=== PATIENT | female | born 1955 | race Two or more races ===

== ENCOUNTER → 2017-08-25 | Outpatient (CLI) | payer OTHER ==
[~2017-08-25] MED LIST: ATORVASTATIN CA10 MG PO; CENTRUM MULTIG80 MCG PO; COZAAR100 MG PO; FORTAMET1000 MG PO; HUMALOG MI100 UNIT/2; MAGNESIUM250 M1 PO; NEURONTIN300 MG PO; PROTONIX40 MG PO; SYNTHROID100 MCG PO
== END | disposition home or self-care (01) ==
LOC: RAD 10:50
DX: Z76.89 Persons encountering health services in other specified circumstances (principal)

== ENCOUNTER → 2017-08-25 | Outpatient (CLI) | payer OTHER | END | disposition home or self-care (01) | LOC: LAB 10:08 | DX: D64.89 Other specified anemias (principal); D68.8 Other specified coagulation defects; N39.0 Urinary tract infection, site not specified; E88.89 Other specified metabolic disorders; A49.02 Methicillin resistant Staphylococcus aureus infection, unspecified site ==

== ENCOUNTER → 2017-08-25 | Outpatient (CLI) | payer OTHER | END | disposition home or self-care (01) | LOC: EKG 11:05 | DX: I49.8 Other specified cardiac arrhythmias (principal) ==

== ENCOUNTER 2017-08-31 12:20 | Inpatient (IN) | payer OTHER ==
[~2017-08-31] VITALS: Ht 154.9 cm; Wt 68.0 kg
[2017-08-31] MEDS ORDERED: SIDEROL TABLET1 EACH PO (12:49)
[2017-08-31] MEDS ORDERED: FAMOTIDINE40 MG PO (12:49)
[2017-09-11] MEDS ORDERED: CIPRO I.V.400 MG/201 IV (07:24)
[2017-09-11] MEDS ORDERED: ATORVASTATIN CA10 MG PO (07:24)
[2017-09-11] MEDS ORDERED: METFORMIN HCL500 MG PO (07:24)
[2017-09-11] MEDS ORDERED: VANCOMYCIN HCL1 GM IV (07:24)
== END 2017-09-11 16:14 | disposition home health service (06) | DRG 496 ==
LOC: O/R 09-04 05:44 → SURH 09-04 05:44
PROVIDERS: Orthopaedic Surgery
PROC: 0RBJ0ZZ Excision of Right Shoulder Joint, Open Approach (ICD-10-PCS; 2017-09-04)
PROC: 05JY0ZZ Inspection of Upper Vein, Open Approach (ICD-10-PCS; 2017-09-04)
PROC: 0RPJ0JZ Removal of Synthetic Substitute from Right Shoulder Joint, Open Approach (ICD-10-PCS; principal; 2017-09-04 07:00)
PROC: 02HV33Z Insertion of Infusion Device into Superior Vena Cava, Percutaneous Approach (ICD-10-PCS; 2017-09-08)
DX: M86.111 Other acute osteomyelitis, right shoulder (principal); T84.84XA Pain due to internal orthopedic prosthetic devices, implants and grafts, initial encounter; S42.241A 4-part fracture of surgical neck of right humerus, initial encounter for closed fracture; M87.821 Other osteonecrosis, right humerus; T84.59XA Infection and inflammatory reaction due to other internal joint prosthesis, initial encounter; Y79.2 Prosthetic and other implants, materials and accessory orthopedic devices associated with adverse incidents; Y92.098 Other place in other non-institutional residence as the place of occurrence of the external cause; Y83.4 Other reconstructive surgery as the cause of abnormal reaction of the patient, or of later complication, without mention of misadventure at the time of the procedure; M65.111 Other infective (teno)synovitis, right shoulder; M75.121 Complete rotator cuff tear or rupture of right shoulder, not specified as traumatic; M19.011 Primary osteoarthritis, right shoulder; D64.89 Other specified anemias; B96.5 Pseudomonas (aeruginosa) (mallei) (pseudomallei) as the cause of diseases classified elsewhere; E11.9 Type 2 diabetes mellitus without complications

== ENCOUNTER 2017-09-18 12:05 | Emergency (ER) | payer OTHER ==
[~2017-09-18] VITALS: Ht 154.9 cm; Wt 68.0 kg
[~2017-09-18 12:05] MED LIST changes: +CIPRO I.V.400 MG/201 IV; +FAMOTIDINE40 MG PO; +METFORMIN HCL500 MG PO; +SIDEROL TABLET1 EACH PO; +VANCOMYCIN HCL1 GM IV
== END 2017-09-18 16:01 | disposition home or self-care (01) ==
LOC: ER 12:05
DX: B34.9 Viral infection, unspecified (principal)

== ENCOUNTER 2017-09-22 15:17 | Emergency (ER) | payer OTHER ==
[~2017-09-22] VITALS: Ht 154.9 cm; Wt 68.0 kg
== END 2017-09-23 13:51 | disposition home or self-care (01) ==
LOC: ER 15:17
DX: D50.0 Iron deficiency anemia secondary to blood loss (chronic) (principal)
CPT/HCPCS: 36430 ×2; 86904 ×2; 86922 ×2; P9021 ×2

== ENCOUNTER → 2017-09-22 | Outpatient (CLI) | payer OTHER | END | disposition home or self-care (01) | LOC: LAB 11:47 | DX: D83.9 Common variable immunodeficiency, unspecified (principal) ==

== ENCOUNTER → 2017-10-12 | Emergency (ER) | payer OTHER ==
[~2017-10-12] VITALS: Ht 154.9 cm; Wt 65.8 kg
== END | disposition home or self-care (01) ==
LOC: ER 15:06
DX: Z45.2 Encounter for adjustment and management of vascular access device (principal)

== ENCOUNTER 2017-12-07 10:33 | Outpatient (CLI) | payer OTHER | END 2017-12-07 10:57 | disposition home or self-care (01) | LOC: RAD 501 10:33 | DX: T84.6 Infection and inflammatory reaction due to internal fixation device (principal); S42.241 4-part fracture of surgical neck of right humerus ==

== ENCOUNTER 2017-12-08 09:19 | Outpatient (CLI) | payer OTHER | END 2017-12-08 09:33 | disposition home or self-care (01) | LOC: NUCLEAR 09:19 | DX: I33.0 Acute and subacute infective endocarditis (principal) ==

== ENCOUNTER 2022-05-07 12:50 | Emergency (ER) | payer OTHER ==
[~2022-05-07] VITALS: Ht 154.9 cm; Wt 72.6 kg
== END 2022-05-07 16:46 | disposition home or self-care (01) ==
LOC: ER
DX: S83.91XA Sprain of unspecified site of right knee, initial encounter (principal); X58.XXXA Exposure to other specified factors, initial encounter; Y93.9 Activity, unspecified; Y92.9 Unspecified place or not applicable; Y99.9 Unspecified external cause status; E11.9 Type 2 diabetes mellitus without complications; Z79.4 Long term (current) use of insulin; I10 Essential (primary) hypertension; Z88.8 Allergy status to other drugs, medicaments and biological substances; Z91.040 Latex allergy status

== ENCOUNTER 2022-07-07 09:42 | Outpatient (CLI) | payer OTHER | END 2022-07-07 09:43 | disposition home or self-care (01) | LOC: LAB 09:42 | PROVIDERS: ATTEND Orthopaedic Surgery | DX: E55.9 Vitamin D deficiency, unspecified (principal); M85.9 Disorder of bone density and structure, unspecified; E21.3 Hyperparathyroidism, unspecified; M81.8 Other osteoporosis without current pathological fracture ==

== ENCOUNTER → 2022-07-18 09:35 | Outpatient (CLI) | payer OTHER | END | disposition home or self-care (01) | LOC: LAB 09:35 | PROVIDERS: ATTEND Orthopaedic Surgery | DX: M25.511 Pain in right shoulder (principal); E56.1 Deficiency of vitamin K ==

== ENCOUNTER 2022-07-19 12:27 | Outpatient (CLI) | payer OTHER | END 2022-07-19 12:40 | disposition home or self-care (01) | LOC: MRI 12:27 | PROVIDERS: ATTEND Orthopaedic Surgery | DX: M17.11 Unilateral primary osteoarthritis, right knee (principal); M23.91 Unspecified internal derangement of right knee | CPT/HCPCS: 73718 ==

== ENCOUNTER 2024-04-03 05:43 | Day surgery (SDC) | payer OTHER ==
[2024-04-03] MEDS ORDERED: DIPHENHYDRAMINE HCL 50 MG/ML VIAL 1ML IV ONE (11:15)
[2024-04-03] MEDS ORDERED: MIDAZOLAM HCL 2 MG/2 ML VIAL IV ONE (11:15)
[2024-04-03] MEDS ORDERED: fentaNYL CITRATE 50 MCG/ML AMPUL IV PUSH ONE (11:15)
== END 2024-04-03 12:00 | disposition home or self-care (01) ==
LOC: AMB-ENDOS 05:43 → CIR.AMB 14:15
PROVIDERS: ATTEND Colon & Rectal Surgery
DX: K63.5 Polyp of colon (principal); K57.30 Diverticulosis of large intestine without perforation or abscess without bleeding; Z91.041 Radiographic dye allergy status; Z88.5 Allergy status to narcotic agent